=== PATIENT | male | born 1975 | race African-American/Black ===

== ENCOUNTER → 2018-12-04 | Day surgery (SDC) | payer OTHER ==
[~2018-12-04] MED LIST: ACETAMINOPHEN 1000 MG/100 ML IV ONE; BACITRACIN 50,000 UNIT VIAL ONE; BACITRACIN ZINC 15 GM OINT ONE; BUPIVACAINE 0.25% 30ML SDV INJ ONE; CEFAZOLIN SOD 1 GM/D5W 50ML 50 ML IV ONE; DESFLURANE 240 ML BTL INH ONE; DEXAMETHASONE SOD PHOS INJ 4 MG/ML VIAL ONE; FENTANYL CITRATE/PF 100MCG/2 ML INJ ONE; HYDROCODONE/APAP 7.5MG-325MG 1 EA TAB ONE; HYDROMORPHONE 2MG/ML 2 MG/ML ML ONE; LIDOCAINE HCL 2% LOCAL INJ 5 ML SDV VIAL INJ ONE; METOPROLOL SUCC25 MG PO; MIDAZOLAM HCL 2 MG/2 ML VIAL ONE; MUPIROCIN 2% OINT 22 GM TUBE ONE; ONDANSETRON HCL INJ 2 MG/ML VIAL ONE; PROPOFOL IV EMULSION 10 MG/ML 20 ML VIAL ONE
--- OUTSIDE RECORDS SUMMARY | 2018-12-04 09:29 | XMS REPORT ---
[facility] Address Unknown Phone Unavailable Care Team Providers Care Emergency Management Director Name Role Phone Unavailable Unavailable Payers Payer Name Policy Type Policy Number Effective Date Expiration Date Problems This patient has no known problems. Allergies, Adverse Reactions, Alerts Allergy Name Allergy Type Status Severity Reaction(s) Onset Date Inactive Date Treating Clinician Comments No Known Allergies DA Active U 2018-10-24 00:00:00 No Known Allergies DA Active U 2018-04-02 00:00:00 Medications This patient has no known medications. Results Test Description Test Time Test Comments Text Results Atomic Results Result Comments MRI ANKLE JNT RT WO CLINICAL INDICATION: M25.571 Pain in right ankle and joints of right foot. MODALITY: Avanto 1.5 Leda 18 channel MRITECHNIQUE: Multiplanar multisequence MRI of the left ankle was performed.IMPRESSION:1. Non insertional rupture of the Achilles tendon, superimposed on mild Achilles tendinosis.2. Moderate subcutaneous soft tissue edema about the right ankle, predominating posteriorly.3. Otherwise unremarkable MRI of right ankle.FINDINGS:COMPARISON: noneEXTENSOR TENDONS: Tibialis anterior, extensor hallucis longus and extensor digitorum longus tendons are intact.MEDIAL TENDONS: Tibialis posterior, flexor digitorum longus and flexor hallucis longus tendons are intact.LATERAL TENDONS: Peroneus longus and brevis tendons are intact.ACHILLES TENDON: Mild Achilles tendinosis is evident. Rupture of the mid - proximal aspect of the Achilles tendon is present, 6 cm proximal to its calcaneal insertion. 2.6 cm fluid signal gap is seen at the site of tear. LIGAMENTS: The anterior and posterior talofibular ligaments are intact. Calcaneofibular ligament is intact. Anterior and posterior inferior tibiofibular ligaments are intact. Deltoid ligament is intact.SINUS TARSI: Sinus tarsi signal is normal. Cervical and talocalcaneal interosseous ligaments are intact.OSSEOUS STRUCTURES: No fractures or destructive osseous lesions are detected. Marrow signal is unremarkable. High-grade talar dome chondral lesion is not seen.MISCELLANEOUS FINDINGS: Moderate subcutaneous soft tissue edema is seen about the right ankle, predominating posteriorly.
--- OUTSIDE RECORDS SUMMARY | 2018-12-04 09:29 | XMS REPORT | Clinical Summary ---
Author Author [facility] Address Unknown Phone Unavailable Care Team Providers Care Tripe Finisher Name Role Phone Sharpless PCP Allergies No Known Allergies Medications End Date Status Medication Sig Dispensed Refills Start Date Active fexofenadine (JOMAR) Take 180 mg 0 180 MG tablet by mouth daily. Active fluticasone (FLONASE) 50 1 spray by 0 mcg/actuation nasal spray Nasal route daily. Active Problems Not on file Social History Date Tobacco Use Types Packs/Day Years Used Never Smoker Alcohol Use Drinks/Week oz/Week Comments No Sex Assigned at Date Recorded Not on file Industry Job Start Date Occupation Not on file Not on file Not on file Travel End Travel History Travel Start No recent travel history available. Last Filed Vital Signs Not on file Plan of Treatment Not on file Results Not on fileafter 12/03/2017 Insurance Payer Benefit Subscriber ID Type Phone Address Plan / Group [employer] - [employer] xxxxxxxxxxx HMO/POS NETWORK
--- NOTE | 2018-12-04 14:13 | Operative Report ---
DATE OF PROCEDURE: December 04, 2018 PRICING DIRECTOR: Fareed Swenson PA-C The patient was brought to the operating room for induction of anesthesia. Throughout this case, my PA's assistance was necessary for retraction of soft tissue and positioning of the extremity. This allows for efficient and technically successful execution of the operation and is considered medically necessary. PREOPERATIVE DIAGNOSIS: Left Achilles tendon rupture. POSTOPERATIVE DIAGNOSIS: Left Achilles tendon rupture. PROCEDURE: Repair of left Achilles tendon. INDICATIONS: The patient is a 43-year-old gentleman who has a subacute rupture of his left Achilles tendon. There are a few fibers intact that have left the tendon relatively approximated. The findings and options have been discussed. The patient is familiar since he recently went through a right Achilles tendon rupture. He would like to have this repaired. The risks and benefits and lengthy recovery have been explained. He states he understands and wishes to proceed. DESCRIPTION OF PROCEDURE: The patient was brought to the operating room and placed under general anesthetic. He was positioned in the left lateral decubitus position. His left lower extremity was prepped and draped in a sterile manner. A preoperative time out was performed. The extremity was exsanguinated and a proximal tourniquet was inflated to 350 mmHg. A small incision was made over the palpable defect in the Achilles tendon. The peritenon was incised. Dense scar tissue was encountered. The ruptured edges of the Achilles tendon were carefully dissected out and debrided back to more healthy tissue. A #2 FiberWire stitch was then placed in a Wilmar type of weave in the proximal and distal portion. I applied as much tension as I could. the sutures were holding in the tendon. These were reapproximated. A secondary capsular weave stitch was also placed. The wound was then irrigated. The ankle was put through gentle range of motion. There was no gapping at the repair site. The peritenon was reapproximated with buried 0 Vicryl. The skin was closed with subcuticular Vicryl and nylon stitches. A sterile bandage and a plantar flexed splint were applied. There was no blood loss. All needle and sponge counts were correct. Job#: [id number]
[2018-12-04 14:35] VITALS: BP 142/86
== END | disposition home or self-care (01) ==
LOC: OR 09:27
PROVIDERS: ATTEND Specialist
DX: S86.012A Strain of left Achilles tendon, initial encounter (principal); I10 Essential (primary) hypertension; G47.33 Obstructive sleep apnea (adult) (pediatric); J45.909 Unspecified asthma, uncomplicated; F41.9 Anxiety disorder, unspecified; X58.XXXA Exposure to other specified factors, initial encounter; Y93.89 Activity, other specified; Y99.0 Civilian activity done for income or pay; Z01.810 Encounter for preprocedural cardiovascular examination; Z68.34 Body mass index [BMI] 34.0-34.9, adult
CPT/HCPCS: 27650; 93005; J0131; J0690; J1100; J1170; J2001; J2250; J2405; J2704